=== PATIENT | female | born 1975 | race Hispanic/Latino ===

== ENCOUNTER → 2024-10-27 | Outpatient (REF) | payer OTHER | LOC: US 11:18 | PROVIDERS: ATTEND Nurse Practitioner Family | DX: E05.90 Thyrotoxicosis, unspecified without thyrotoxic crisis or storm (principal) | CPT/HCPCS: 76536 ==

== ENCOUNTER → 2025-03-01 | Outpatient (REF) | payer OTHER ==
[~2025-03-01] MED LIST: FERROUS SULFAT324 MG PO; MAGNESIUM CITR125 MG PO; METHIMAZOLE10 MG PO; PROPRANOLOL HCL20 MG PO
== END ==
LOC: NM 09:07
PROVIDERS: ATTEND Nurse Practitioner Family
DX: E05.90 Thyrotoxicosis, unspecified without thyrotoxic crisis or storm (principal)
CPT/HCPCS: 78014; 81025; A9516

== ENCOUNTER 2025-03-06 17:00 | Emergency (ER) | payer OTHER ==
[~2025-03-06] VITALS: Ht 152.4 cm; Wt 72.6 kg
[2025-03-06] MEDS: KETOROLAC TROMETHAMINE 30 MG/ML VIAL IV STA (20:32)
[2025-03-06] MEDS: DIPHENHYDRAMINE HCL INJ 50 MG/ML VIAL IV ONE (20:32)
[2025-03-06] MEDS: METOCLOPRAMIDE HCL 10 MG/2ML VIAL IV ONE (20:32)
[2025-03-06] MEDS: SODIUM CHLORIDE 0.9% 1000ML 1,000 ML IV ONE (20:33)
[2025-03-06] MEDS: ACETAMIN/BUTALBITAL/CAFFEINE TAB PO ONE (20:33)
[2025-03-06 22:30] VITALS: PULSE 62; RESP 16; TEMP 98.6; O2SAT 100
== END 2025-03-06 22:32 | disposition home or self-care (01) ==
LOC: ER 19:57
DX: R51.9 Headache, unspecified (principal); J45.909 Unspecified asthma, uncomplicated; E05.90 Thyrotoxicosis, unspecified without thyrotoxic crisis or storm
CPT/HCPCS: 70450; 99284; J1200; J1885; J2765; J7030